=== PATIENT | female | born 1960 | race Caucasian/White ===

== ENCOUNTER 2018-03-13 10:28 | Emergency (ER) | payer OTHER ==
[2018-03-13] MEDS ORDERED: NS 1,000 ML IV ONE ×2 (10:43→11:12)
[2018-03-13] MEDS ORDERED: ONDANSETRON 4 MG/2 ML VIAL IVP ONE (10:43)
[2018-03-13 11:00] LABS: PLATELET COUNT 234 10^3/uL (150-400)
[2018-03-13] MEDS ORDERED: PROMETHAZINE HCL 25 MG/ML INJ IVP ONE (11:07)
[2018-03-13] MEDS ORDERED: HALOPERIDOL LACT 5 MG/ML INJ IVP ONE (12:09)
--- NOTE | 2018-03-13 12:31 | EDPHY ---
H & P Smoking Status: Current every day smoker Time Seen by Provider: 03/13/18 11:39 HPI/ROS: CHIEF COMPLAINT: Vomiting, abdominal pain, diarrhea HISTORY OF PRESENT ILLNESS: 57-year-old female presents to the emergency department with her by private vehicle with multiple episodes of nausea vomiting that began this morning. The patient has had numerous episodes of the same over last 10 or 15 years. The patient has seen a web content & social media manager for this in the past. The patient does drink alcohol. She admits to using marijuana daily. She feels that this is the exact same pain that she always has that is associated with these episodes of vomiting and epigastric abdominal pain. No melena. No hematemesis. No fevers or chills. She denies pain or chest or difficulty breathing. REVIEW OF SYSTEMS: Constitutional: No fever, no chills. Eyes: No double or blurry vision. ENT: No sore throat. Respiratory: No cough, no shortness of breath. Cardiac: No chest pain. Gastrointestinal: As above Genitourinary: No dysuria. Musculoskeletal: No neck or back pain. Skin: No rashes. Neurological: No headache. (Kassi Fleming) Past Medical/Surgical History: Daily marijuana use, chronic abdominal pain (Kassi Fleming) Social History: from [place] (Kassi Fleming) Physical Exam: General Appearance: Alert, moderate distress. Anxious, moaning. at bedside. Eyes: Pupils equal and round. Extraocular motions are all intact. ENT: Mouth: Mucous membranes moist. Respiratory: No wheezing, rhonchi, or rales, lungs are clear to auscultation. Cardiovascular: Regular rate and rhythm. Gastrointestinal: Abdomen is soft. Tenderness with palpation in the epigastric area. There is no rebound, guarding or masses noted. No CVA tenderness bilaterally. Neurological: Alert and oriented x 3, cranial nerves II through XII grossly intact Skin: Warm and dry, no rashes. Musculoskeletal: Nontender to palpate along the cervical, thoracic or lumbar spine. Neck is supple. Extremities: Full range of motion and no peripheral edema. Psychiatric: Patient is oriented X 3, there is no agitation. (Kassi Fleming) Constitutional: Initial Vital Signs Temperature (C) 36.7 C 03/13/18 10:30 Heart Rate 92 03/13/18 10:30 Respiratory Rate 18 03/13/18 10:30 Blood Pressure 129/80 H 03/13/18 10:30 O2 Sat (%) 93 03/13/18 10:30 O2 Delivery Mode Room Air Allergies/Adverse Reactions: lorazepam [From Ativan] Allergy (Verified 03/13/18 10:33) ativan Allergy (Uncoded 03/13/18 10:33) Home Medications: Medication Instructions Recorded PARoxetine HCL [Paroxetine ER] 25 mg PO 03/13/18 Medical Decision Making ED Course/Re-evaluation: 57-year-old female presents to the emergency department with multiple episodes of nausea vomiting and some diarrhea. She has had these similar symptoms in the past multiple times. She has been worked up by web content & social media manager. She has had multiple imaging studies. Her states that they are always "negative and always normal". The patient has an allergy to lorazepam. The patient had an IV established and was given 2 L of IV normal saline. She was given IV Zofran, IV Phenergan, and 2.5 mg of IV Haldol. She was feeling much better. She is currently sleeping. She has been re-evaluated multiple times. Laboratory studies are unremarkable. I do not think imaging studies are indicated. The patient feels that this is the exact same pain that she has had with previous flare-ups with her abdominal pain. She does also report that her symptoms are relieved with taking multiple hot showers daily or soaking in a hot bath. She did try soaking in hot bath today with only temporary relief. 1645: The patient was re-examined. She was ambulatory. She is able to drink water. She is feeling better although still very groggy from the medication. She feels comfortable being discharged home with her . (Kassi Fleming) I did not see this patient while she was in the emergency department. However her care was discussed with the PA while the patient was in emergency department. I agree with treatment plan and management (Dallas Lynn) Differential Diagnosis: Including but not limited to cyclical vomiting syndrome, dehydration, electrolyte abnormality, hyperemesis cannabinoid syndrome, bowel obstruction ( Kassi Fleming) - Data Points Laboratory Results: Laboratory Results 03/13/18 10:45 03/13/18 10:45 Medications Given: Discontinued Medications Haloperidol Lactate (Haldol Injection) 2.5 mg IVP EDNOW ONE Stop: 03/13/18 12:10 Last Admin: 03/13/18 12:27 Dose: 2.5 mg Sodium Chloride (Ns) 1,000 mls @ 0 mls/hr IV ONCE ONE PRN Reason: Wide Open Stop: 03/13/18 10:44 Last Admin: 03/13/18 10:48 Dose: 1,000 mls Sodium Chloride (Ns) 1,000 mls @ 0 mls/hr IV ONCE ONE PRN Reason: Wide Open Stop: 03/13/18 11:13 Last Admin: 03/13/18 11:23 Dose: 1,000 mls Ondansetron HCl (Zofran) 4 mg IVP EDNOW ONE Stop: 03/13/18 10:44 Last Admin: 03/13/18 10:48 Dose: 4 mg Promethazine HCl (Phenergan) 12.5 mg IVP ONCE ONE Stop: 03/13/18 11:08 Last Admin: 03/13/18 11:11 Dose: 12.5 mg Departure - Departure Disposition: Home, Routine, Self-Care Clinical Impression: Vomiting Condition: Good Instructions: Acute Nausea and Vomiting (ED) Additional Instructions: Clear liquids and slowly advance diet as tolerated. Abdominal Pain: Return to the Emergency Department immediately for increasing pain, fever, vomiting, or if not completely better in 8-12 hours. Referrals: Jacob Alicia MD [Medical Doctor] - As per Instructions ( [employer] Aircrewman on-call)
[2018-03-13 16:55] VITALS: BP 121/90
== END 2018-03-13 16:54 | disposition home or self-care (01) ==
DX: R10.9 Unspecified abdominal pain (principal); R11.10 Vomiting, unspecified; R19.7 Diarrhea, unspecified
CPT/HCPCS: 96361; 96374; 96375; 99284; J1630; J2405; J2550